=== PATIENT | female | born 1950 | race Caucasian/White ===

== ENCOUNTER → 2016-09-27 | Outpatient (CLI) | payer OTHER | END | disposition home or self-care (01) | LOC: CARD 12:30 | PROVIDERS: ATTEND Internal Medicine Critical Care Medicine | DX: R06.02 Shortness of breath (principal) | CPT/HCPCS: 94060; 94620; 94726; 94729 ==

== ENCOUNTER 2018-09-28 08:09 | Outpatient (CLI) | payer OTHER | END 2018-09-28 23:59 | disposition home or self-care (01) | LOC: RAD 08:09 | PROVIDERS: ATTEND Internal Medicine Endocrinology, Diabetes & Metabolism | DX: E05.20 Thyrotoxicosis with toxic multinodular goiter without thyrotoxic crisis or storm (principal) | CPT/HCPCS: 78013; A9516 ==

== ENCOUNTER → 2019-12-28 | Outpatient (CLI) | payer OTHER ==
[~2019-12-28] MED LIST: BELSOMRA; BUDE10.2 INH; CHOL10003 PO; DIPH25CA61 PO; ESTRADIOL TD; LEVO75TA PO; MELATONIN PO; MERC50TA17 PO; MOME17SP9 NAS; MONT10TA11 PO; PROBIOTIC PO; SIMV40TA20 PO; SPECTRAVITE PO
== END | disposition home or self-care (01) ==
LOC: STAR 13:09
PROVIDERS: ATTEND Anesthesiology
DX: Z01.812 Encounter for preprocedural laboratory examination (principal); Z20.828 Contact with and (suspected) exposure to other viral communicable diseases
CPT/HCPCS: 36415; 87635

== ENCOUNTER 2020-01-02 06:44 | Day surgery (SDC) | payer OTHER ==
[~2020-01-02] VITALS: Ht 167.6 cm; Wt 92.9 kg
[2020-01-02] MEDS ORDERED: LACTATED RINGERS 1,000 ML IV SCH (07:16)
[2020-01-02] MEDS ORDERED: BUPIVACAINE/PF 0.5% ONE (07:27)
[2020-01-02] MEDS ORDERED: LIDOCAINE 1%, 20ML ONE (07:27)
[2020-01-02 07:28] VITALS: BP 139/77
[2020-01-02] MEDS ORDERED: CHLORHEXIDINE 15 ML UDC MM ONE (07:30)
[2020-01-02] MEDS ORDERED: MIDAZOLAM 1 MG/ML, 2ML ONE (08:47)
[2020-01-02] MEDS ORDERED: FENTANYL PF 100 MCG/2ML ONE (08:54)
[2020-01-02] MEDS ORDERED: DEXAMETHASONE 4 MG/ML, 1ML ONE ×2 (08:54→09:00)
[2020-01-02] MEDS ORDERED: CEFAZOLIN 1,000 MG ONE (08:54)
[2020-01-02] MEDS ORDERED: ONDANSETRON 2MG/ML, 2ML ONE ×2 (09:00)
[2020-01-02] MEDS ORDERED: BACITRACIN 50,000 UNIT ONE (09:23)
[2020-01-02] MEDS ORDERED: BUPIVACAINE/PF 0.5% INFIL ONE (09:27)
[2020-01-02] MEDS ORDERED: LIDOCAINE 1%, 20ML INFIL ONE (09:28)
[2020-01-02] MEDS ORDERED: BACITRACIN 50,000 UNIT IM ONE (09:29)
[2020-01-02] MEDS ORDERED: MEPERIDINE/PF 25MG/0.5ML IVPush PRN (09:30)
[2020-01-02] MEDS ORDERED: HYDROmorphone 1 MG/ML, 1ML INJ IVPush PRN (09:30)
[2020-01-02] MEDS ORDERED: ACETAMINOPHEN 325 MG TABLET PO PRN (09:30)
[2020-01-02] MEDS ORDERED: hydrALAzine 20 MG/ML, 1ML IV PRN (09:30)
[2020-01-02] MEDS ORDERED: OXYcodone 5 MG/5 ML ORAL.SOL UDC PO PRN (09:30)
[2020-01-02] MEDS ORDERED: LABETALOL 5MG/ML, 20ML IV PRN (09:30)
[2020-01-02] MEDS ORDERED: PROMETHAZINE 25 MG/ML, 1ML IVPush PRN (09:30)
[2020-01-02] MEDS ORDERED: DIAZEPAM 5 MG/ML, 2ML IVPush PRN (09:30)
[2020-01-02] MEDS ORDERED: MIDAZOLAM 1 MG/ML, 2ML IV PRN (09:30)
[2020-01-02] MEDS ORDERED: ONDANSETRON 2MG/ML, 2ML IVPush PRN (09:30)
[2020-01-02] MEDS ORDERED: EPHEDRINE 50 MG/ML, 1ML IVPush PRN (09:30)
[2020-01-02] MEDS ORDERED: DIPHENHYDRAMINE 50 MG/ML, 1ML IVPush PRN ×2 (09:30)
[2020-01-02] MEDS ORDERED: ALBUTEROL SULFATE 2.5 MG/3 ML NPPB PRN (09:30)
[2020-01-02] MEDS ORDERED: FENTANYL PF 100 MCG/2ML IV PRN (09:30)
[2020-01-02] MEDS ORDERED: PROMETHAZINE 12.5 MG SUPP PR PRN (09:30)
[2020-01-02] MEDS ORDERED: PROPOFOL 10 MG/ML, 20ML ONE (09:45)
== END 2020-01-02 12:00 | disposition home or self-care (01) ==
LOC: OUT 06:44
PROVIDERS: ATTEND Orthopaedic Surgery
DX: M13.842 Other specified arthritis, left hand (principal); M79.645 Pain in left finger(s); J44.9 Chronic obstructive pulmonary disease, unspecified; Z79.899 Other long term (current) drug therapy; E78.5 Hyperlipidemia, unspecified; E03.9 Hypothyroidism, unspecified; Z72.89 Other problems related to lifestyle; Z82.49 Family history of ischemic heart disease and other diseases of the circulatory system; Z83.3 Family history of diabetes mellitus
CPT/HCPCS: 26536; C1776; J0690; J1100; J2250; J2405; J2704; J3010; J7120

== ENCOUNTER → 2020-04-17 | Outpatient (CLI) | payer OTHER ==
[~2020-04-17] MED LIST changes: +B CO1TAB14 PO; +FLAX10004 PO; +LEVO88CA2 PO; -MONT10TA11 PO; +MONT10TA96 PO
== END | disposition home or self-care (01) ==
LOC: STAR 10:02
PROVIDERS: ATTEND Orthopaedic Surgery
DX: Z01.818 Encounter for other preprocedural examination (principal); M79.645 Pain in left finger(s); M19.90 Unspecified osteoarthritis, unspecified site; Z20.828 Contact with and (suspected) exposure to other viral communicable diseases
CPT/HCPCS: 87635; 93005

== ENCOUNTER 2020-04-23 06:27 | Day surgery (SDC) | payer OTHER ==
[2020-04-17 10:48] VITALS: BP 144/83
[~2020-04-23] VITALS: Ht 167.6 cm; Wt 92.9 kg
[2020-04-23] MEDS ORDERED: LIDOCAINE 1%, 20ML ONE (06:38)
[2020-04-23] MEDS ORDERED: BUPIVACAINE/PF 0.5% ONE (06:38)
[2020-04-23 06:53] VITALS: BP 144/83
[2020-04-23] MEDS ORDERED: CHLORHEXIDINE 15 ML UDC MM ONE (07:00)
[2020-04-23] MEDS ORDERED: LACTATED RINGERS 1,000 ML IV SCH (07:00)
[2020-04-23] MEDS ORDERED: ACETAMINOPHEN 500 MG TABLET PO ONE (08:00)
[2020-04-23] MEDS ORDERED: KETOROLAC 30 MG/1 ML ONE (08:24)
[2020-04-23] MEDS ORDERED: CEFAZOLIN 1,000 MG ONE ×2 (08:25)
[2020-04-23] MEDS ORDERED: PROPOFOL 10 MG/ML, 20ML ONE (08:25)
[2020-04-23] MEDS ORDERED: HYDROmorphone 1 MG/ML, 1ML INJ IVPush PRN (08:30)
[2020-04-23] MEDS ORDERED: PROMETHAZINE 25 MG/ML, 1ML IVPush PRN (08:30)
[2020-04-23] MEDS ORDERED: EPHEDRINE 50 MG/ML, 1ML IVPush PRN (08:30)
[2020-04-23] MEDS ORDERED: hydrALAzine 20 MG/ML, 1ML IV PRN (08:30)
[2020-04-23] MEDS ORDERED: OXYcodone 5 MG/5 ML ORAL.SOL UDC PO PRN (08:30)
[2020-04-23] MEDS ORDERED: FENTANYL PF 100 MCG/2ML IV PRN (08:30)
[2020-04-23] MEDS ORDERED: LABETALOL 5MG/ML, 20ML IV PRN (08:30)
[2020-04-23] MEDS ORDERED: ONDANSETRON 2MG/ML, 2ML IVPush PRN (08:30)
== END 2020-04-23 09:40 | disposition home or self-care (01) ==
LOC: OUT 06:27
PROVIDERS: ATTEND Orthopaedic Surgery
DX: T85.692A Other mechanical complication of permanent sutures, initial encounter (principal); E78.5 Hyperlipidemia, unspecified; J44.9 Chronic obstructive pulmonary disease, unspecified; G47.30 Sleep apnea, unspecified; M19.90 Unspecified osteoarthritis, unspecified site; Y83.8 Other surgical procedures as the cause of abnormal reaction of the patient, or of later complication, without mention of misadventure at the time of the procedure; Z79.899 Other long term (current) drug therapy; Z72.89 Other problems related to lifestyle; Z82.49 Family history of ischemic heart disease and other diseases of the circulatory system; Z98.890 Other specified postprocedural states
CPT/HCPCS: 15851; J0690; J1885; J2704; J7120